=== PATIENT | female | born 1945 | race Caucasian/White ===

== ENCOUNTER 2020-11-03 07:52 | Day surgery (SDC) | payer MEDICARE, OTHER ==
[~2020-11-03 07:52] MED LIST: Cefuroxime 10 MG/ML SYRINGE EYELF SCH; Lidocaine 1% PF 2 ML SDV INJECT SCH; Pilocarpine 4% Ophth Soln 15 ML Bot EYELF SCH
[2020-11-03] MEDS: Polymyxin B/Trimethoprim 10 ML Bottle EYELF SCH ×3 (08:19→10:11)
[2020-11-03] MEDS: Brimonidine 0.2% Ophth Soln 5 ML Bottle EYELF SCH ×3 (08:25→10:11)
[2020-11-03] MEDS: Phenylephrine 2.5% Ophth Soln 15 ML Bot EYELF SCH ×5 (08:30→09:53)
--- NOTE | 2020-11-03 08:31 | PCM.PREANE ---
Preanesthetic Assessment - Procedure Proposed Procedure: Left Cataract with IOL - Anesthesia/Transfusion/Family Hx Anesthesia History: Prior Anesthesia Without Reaction Family History of Anesthesia Reaction: No - Review of Systems General: No Symptoms Pulmonary: Other (Smoker 1/2 ppd for 40 years. Denies Cough/SOB) Cardiovascular: No Symptoms Gastrointestinal: No Symptoms Neurological: Pre-Existing Deficit (Very [place]) Other: Reports: Sinus Problem - Physical Assessment NPO Status Date: 11/02/20 NPO Status Time: 21:00 Vital Signs: Last Vital Signs Temp 36.8 C 11/03/20 07:55 Pulse 69 11/03/20 07:55 Resp 16 11/03/20 07:55 BP 131/76 11/03/20 07:55 Pulse Ox 99 11/03/20 07:55 Height: 1.55 m Weight: 63.503 kg ASA Class: 2 Mental Status: Alert & Oriented x3 Airway Class: Mallampati = 2 Dentition: Reports: Dentures Thyro-Mental Finger Breadths: 2 Mouth Opening Finger Breadths: 3 ROM/Head Extension: Full Lungs: Clear to Auscultation, Normal Respiratory Effort Cardiovascular: Regular Rate, Regular Rhythm - Allergies Allergies/Adverse Reactions: Allergies Allergy/AdvReac Type Severity Reaction Status Date / Time No Known Allergies Allergy Verified 11/02/20 14:13 - Acknowledgements Anesthesia Type Planned: MAC Pt an Appropriate Candidate for the Planned Anesthesia: Yes Alternatives and Risks of Anesthesia Discussed w Pt/Guardian: Yes Pt/Guardian Understands and Agrees with Anesthesia Plan: Yes PreAnesthesia Questionnaire - HOME MEDS Home Medications: Home Meds . [No Known Home Meds] 11/02/20 [History] - CURRENT (IN HOUSE) MEDS Current Meds: Current Medications Brimonidine Tartrate (Alphagan 0.2% Ophth Soln) 0 ml EYELF ASDIRECTED DEBBIE Stop: 11/03/20 23:00 Last Admin: 11/03/20 08:25 Dose: 1 drop Documented by: Cefuroxime Sodium (Zinacef) 0 mg EYELF ASDIRECTED [facility]E Stop: 11/03/20 23:00 Lidocaine HCl (Xylocaine-Mpf 1%) 0 ml INJECT ASDIRECTED DEBBIE Stop: 11/03/20 23:00 Phenylephrine HCl (Devon-Synephrine 2.5% Ophth Soln) 0 ml EYELF ASDIRECTED DEB[facility]E Stop: 11/03/20 23:00 Pilocarpine HCl (Pilocar 4% Ophth Soln) 0 ml EYELF ASDIRECTED [facility] Stop: 11/03/20 23:00 Polymyxin/Trimethoprim Sulfate (Polytrim Ophth Soln) 0 ml EYELF ASDIRECTED DEBBIE Stop: 11/03/20 23:00 Last Admin: 11/03/20 08:19 Dose: 1 drop Documented by: Tetracaine HCl (Tetracaine 0.5% Steri-Unit Roslyn) 0 ml EYEBOTH ASDIRECTED DEBBIE Stop: 11/03/20 23:00 Tropicamide (Mydriacyl 1% Ophth Soln) 0 ml EYELF ASDIRECTED DEBBIE Stop: 11/03/20 23:00
[2020-11-03] MEDS: Tropicamide 1% Ophth Soln 15 ML Bottle EYELF SCH ×4 (08:35→09:32)
[2020-11-03] MEDS: Tetracaine HCl/PF 0.5% 4 ML Bottle EYEBOTH SCH ×2 (09:40→10:03)
--- NOTE | 2020-11-03 10:12 | PCM48HPAN ---
Post Anesthesia Note - EVALUATION WITHIN 48HRS OF ANESTHETIC Vital Signs in Normal Range: Yes Patient Participated in Evaluation: Yes Respiratory Function Stable: Yes Airway Patent: Yes Cardiovascular Function Stable: Yes Hydration Status Stable: Yes Pain Control Satisfactory: Yes Nausea and Vomiting Control Satisfactory: Yes Mental Status Recovered: Yes Vital Signs: Last Vital Signs Temp 36.8 C 11/03/20 07:55 Pulse 69 11/03/20 07:55 Resp 16 11/03/20 07:55 BP 131/76 11/03/20 07:55 Pulse Ox 99 11/03/20 07:55
== END 2020-11-03 10:24 | disposition home or self-care (01) ==
LOC: JD.SDS 07:52
PROVIDERS: ATTEND Ophthalmology
DX: H25.813 Combined forms of age-related cataract, bilateral (principal); H16.103 Unspecified superficial keratitis, bilateral; H16.223 Keratoconjunctivitis sicca, not specified as Sjogren's, bilateral; H02.831 Dermatochalasis of right upper eyelid; H02.834 Dermatochalasis of left upper eyelid; F17.210 Nicotine dependence, cigarettes, uncomplicated; Z98.890 Other specified postprocedural states
CPT/HCPCS: C1780; J0697; J2001

== ENCOUNTER 2020-12-15 07:24 | Day surgery (SDC) | payer MEDICARE, OTHER ==
[~2020-12-15 07:24] MED LIST changes: -Cefuroxime 10 MG/ML SYRINGE EYELF SCH; -Lidocaine 1% PF 2 ML SDV INJECT SCH; +Phenylephrine 2.5% Ophth Soln 2 ML Bot EYERT SCH; -Pilocarpine 4% Ophth Soln 15 ML Bot EYELF SCH
[2020-12-15] MEDS: Polymyxin B/Trimethoprim 10 ML Bottle EYERT SCH ×4 (07:32→09:23)
[2020-12-15] MEDS: Brimonidine 0.2% Ophth Soln 5 ML Bottle EYERT SCH ×4 (07:37→09:23)
[2020-12-15] MEDS: Phenylephrine 2.5% Ophth Soln 15 ML Bot EYERT SCH ×6 (07:41→09:08)
--- NOTE | 2020-12-15 07:41 | PCM.PREANE ---
Preanesthetic Assessment - Anesthesia/Transfusion/Family Hx Anesthesia History: Prior Anesthesia Without Reaction Family History of Anesthesia Reaction: No Transfusion History: No Prior Transfusion(s) - Review of Systems General: No Symptoms Pulmonary: Other (smoker, smoked this am) Cardiovascular: No Symptoms Gastrointestinal: No Symptoms Neurological: No Symptoms Other: Reports: None - Physical Assessment NPO Status Date: 12/14/20 NPO Status Time: 18:00 ASA Class: 2 Mental Status: Alert & Oriented x3 Airway Class: Mallampati = 2 Dentition: Reports: Normal Dentition, Dentures Thyro-Mental Finger Breadths: 3 Mouth Opening Finger Breadths: 3 ROM/Head Extension: Full Lungs: Clear to Auscultation, Normal Respiratory Effort, Wheezing Cardiovascular: Regular Rate, Regular Rhythm - Allergies Allergies/Adverse Reactions: Allergies Allergy/AdvReac Type Severity Reaction Status Date / Time No Known Allergies Allergy Verified 12/14/20 10:15 - Blood Blood Available: No Product(s) Available: None - Anesthesia Plan Pre-Op Medication Ordered: None - Acknowledgements Anesthesia Type Planned: MAC Pt an Appropriate Candidate for the Planned Anesthesia: Yes Alternatives and Risks of Anesthesia Discussed w Pt/Guardian: Yes Pt/Guardian Understands and Agrees with Anesthesia Plan: Yes PreAnesthesia Questionnaire - HOME MEDS Home Medications: Home Meds . [No Known Home Meds] 11/02/20 [History] - CURRENT (IN HOUSE) MEDS Current Meds: Current Medications Brimonidine Tartrate (Alphagan 0.2% Ophth Soln) 0 ml EYERT ASDIRECTED DEBBIE Stop: 12/15/20 18:00 Cefuroxime Sodium (Zinacef) 0 mg EYERT ASDIRECTED [facility] Stop: 12/15/20 18:00 Lidocaine HCl (Xylocaine-Mpf 1%) 0 ml INJECT ASDIRECTED DEBBIE Stop: 12/15/20 18:00 Phenylephrine HCl (Devon-Synephrine 2.5% Ophth Soln) 0 ml EYERT ASDIRECTED DEBBIE Stop: 12/15/20 18:00 Pilocarpine HCl (Pilocar 4% Ophth Soln) 0 ml EYERT ASDIRECTED DEBBIE Stop: 12/15/20 18:00 Polymyxin/Trimethoprim Sulfate (Polytrim Ophth Soln) 0 ml EYERT ASDIRECTED DEBBIE Stop: 12/15/20 18:00 Last Admin: 12/15/20 07:32 Dose: 1 drop Documented by: Tetracaine HCl (Tetracaine 0.5% Steri-Unit Roslyn) 0 ml EYEBOTH ASDIRECTED DEBBIE Stop: 12/15/20 18:00 Tropicamide (Mydriacyl 1% Ophth Soln) 0 ml EYERT ASDIRECTED DEBBIE Stop: 12/15/20 18:00 Discontinued Medications Phenylephrine HCl (Devon-Synephrine 2.5% Ophth Soln) 0 ml EYERT ASDIRECTED DEBBIE Stop: 12/15/20 18:00
[2020-12-15] MEDS: Tropicamide 1% Ophth Soln 15 ML Bottle EYERT SCH ×4 (07:47→08:44)
[2020-12-15] MEDS: Tetracaine HCl/PF 0.5% 4 ML Bottle EYEBOTH SCH ×2 (08:55→09:08)
[2020-12-15] MEDS: Lidocaine 1% PF 2 ML SDV INJECT SCH ×2 (09:08→09:09)
[2020-12-15] MEDS: Cefuroxime 10 MG/ML SYRINGE EYERT SCH ×2 (09:09→09:22)
[2020-12-15] MEDS: Pilocarpine 4% Ophth Soln 15 ML Bot EYERT SCH ×2 (09:10→09:23)
== END 2020-12-15 09:36 | disposition home or self-care (01) ==
LOC: JD.SDS 07:24
PROVIDERS: ATTEND Ophthalmology
DX: H25.811 Combined forms of age-related cataract, right eye (principal); Z98.890 Other specified postprocedural states
CPT/HCPCS: 66984; C1780; J0697; J2001